=== PATIENT | female | born 1950 | race Caucasian/White ===

== ENCOUNTER 2018-06-12 09:03 | Outpatient (CLI) | payer BC ==
--- NOTE | 2018-06-12 09:30 | RAD ---
CHEST TWO VIEWS: History: Dyspnea. Comparison: 03-19-17 FINDINGS: There is scarring in the lung apices. No focal airspace consolidation, pneumothorax, or effusion. Mil d S-shaped scoliosis. Right upper quadrant surgical clips. IMPRESSION: No acute intrathoracic abnormality. POS: [facility]
== END 2018-06-12 09:04 | disposition home or self-care (01) ==
LOC: RAD 09:03
PROVIDERS: ATTEND Internal Medicine Critical Care Medicine
DX: R06.00 Dyspnea, unspecified (principal)
CPT/HCPCS: 71046

== ENCOUNTER 2018-08-13 08:21 | Outpatient (CLI) | payer BC ==
--- NOTE | 2018-08-13 10:50 | MRI ---
MRI CERVICAL SPINE WITHOUT CONTRAST: Date: 08/13/18 HISTORY: Cervical spine degeneration. Neck pain with pain radiating down left arm. COMPARISON: none. TECHNIQUE: Cervical spine MRI is performed without intravenous Gadolinium administration. Multisequential, multi planar imaging is performed. FINDINGS: There appears to be Type I Modic change at the C5-C6 disc space. There also appears to be abnormal ed graciela involving the right facet at C6, C7, and the intervening interfacet of joint space which has flui d. Facet arthropathy is suspected. No STIR hyperintensity to suggest vertebral body fractures or liga mentous injury. Visualized brain parenchyma, cervicomedullary junction, cervical cord, and the upper thoracic cord vickers ve a normal size and signal intensity. C2-C3: No significant central canal stenosis. Neural foramina are patent. C3-C4: No significant central canal stenosis. Right neural foramen is patent. Mild left foraminal na rrowing. C4-C5: Central disc osteophyte complex abuts the thecal sac. Ventral CSF signal intensity is maintai gary. No significant central canal stenosis. Neural foramina are patent bilaterally. C5-C6: Broad based disc osteophyte complex. Mild central canal stenosis. Right neural foramen is pat ent. Mild to moderate left foraminal narrowing due to degenerative change of the uncovertebral joint. C6-C7: No significant disc osteophyte complex. No significant central canal stenosis. Neural foramin a are patent. C7-T1: No significant central canal stenosis. Neural foramina are patent. IMPRESSION: Degenerative changes of the cervical spine as detailed above. POS: [facility]
== END 2018-08-13 08:22 | disposition home or self-care (01) ==
LOC: TBSIIMAG 08:21
PROVIDERS: ATTEND Internal Medicine Rheumatology
DX: M47.812 Spondylosis without myelopathy or radiculopathy, cervical region (principal)
CPT/HCPCS: 72141

== ENCOUNTER 2019-01-29 10:01 | Outpatient (CLI) | payer BC ==
--- NOTE | 2019-01-29 11:52 | RAD ---
CERVICAL SPINE 4 VIEWS: INDICATION: Neck pain without history of injury. COMPARISON: Prior MRI cervical spine dated 08/13/2018 and a cervical spine radiograph dated 06/24/2018. FINDINGS: There is very subtle anterior translation of C4 and C5 that was seen with flexion on the prior examin ation. There is advanced degenerative disk disease at C5-6. There is prominent facet osteoarthrosis at C4-5 and C5-6. There is very subtle anterior translation of C6 on C7 which is stable. Anterior translation of C4 on C6 and C6 on C7 is accentuated with flexion and does reduce with extension. Lat eral masses are symmetric. No acute fracture is evident. IMPRESSION: 1. Abnormal translational motion at C4-C5 and C6-7, accentuated with flexion and reduces with extens ion. 2. Moderate spondylosis of the cervical spine appears similar to a comparison dated 2017. POS: [facility]
== END 2019-01-29 10:02 | disposition home or self-care (01) ==
LOC: TBSIIMAG 10:01
PROVIDERS: ATTEND Surgery
DX: M47.22 Other spondylosis with radiculopathy, cervical region (principal)
CPT/HCPCS: 72050

== ENCOUNTER 2019-03-31 10:44 | Outpatient (CLI) | payer BC ==
[2019-03-31 11:50] LABS: Hemoglobin 11.9 g/dL (12.0-16.0); Mean Corpuscular HGB CONC 32.6 g/dL (32.0-36.0); Mean Corpuscular Hemoglobin 31.1 pg (27.0-31.0); Mean Corpuscular Volume 95.5 fL (78.0-98.0); Mean Platelet Volume 7.2 fL (7.4-10.4); Platelet Count 260 thou/uL (130-400); RBC Distribution Width 11.8 % (11.5-14.5); Red Blood Cell (RBC) Count 3.82 mill/uL (4.20-5.40); White Blood Cell (WBC) Count 7.8 thou/uL (4.8-10.8)
[2019-03-31 11:59] LABS: INR-International Normal Ratio 0.9; PTT 29.7 SEC (22.9-36.1); Prothrombin Time 12.5 SEC (12.0-14.7)
[2019-03-31 12:25] LABS: Anion Gap 15 mmol/L (10-20); BUN (Urea Nitrogen) 17 mg/dL (9.8-20.1); Calc. Creatinine Clearance 0 mL/min (70-130); Calcium 10.1 mg/dL (7.8-10.44); Carbon Dioxide 27 mmol/L (23-31); Chloride 101 mmol/L (98-107); Estimated GFR-MDRD 62; Glucose 99 mg/dL (80-115); Potassium 4.5 mmol/L (3.5-5.1); Sodium 138 mmol/L (136-145)
== END 2019-03-31 10:45 | disposition home or self-care (01) ==
LOC: LABBT 10:44
PROVIDERS: ATTEND Surgery
DX: Z01.818 Encounter for other preprocedural examination (principal); M48.02 Spinal stenosis, cervical region; M54.12 Radiculopathy, cervical region
CPT/HCPCS: 80048; 85027; 85610; 85730; 93005; 93010

== ENCOUNTER 2019-04-03 06:06 | Day surgery (SDC) | payer BC ==
[2019-03-31 10:56] VITALS: BMI 23.5
[2019-04-03] MEDS ORDERED: Thrombin 5000 UNITS/5 ML VIAL ONE (06:38)
[2019-04-03] MEDS ORDERED: Sodium Chloride 0.9% 10 ML ONE ×2 (06:38→22:34)
[2019-04-03] MEDS ORDERED: ceFAZolin Sodium (SDC) 2 GM/100 ML BAG ONE (06:52)
[2019-04-03] MEDS ORDERED: Fentanyl 250 MCG/5 ML VIAL ONE (07:12)
[2019-04-03] MEDS ORDERED: Ketamine 50 MG/ML (10ML VIAL) ONE (07:31)
[2019-04-03] MEDS ORDERED: HYDROmorphone 2 MG/ML VIAL SLOW IVP PRN (09:09)
[2019-04-03] MEDS ORDERED: Promethazine HCl 25 MG/ML VIAL SLOW IVP PRN (09:09)
[2019-04-03] MEDS ORDERED: Morphine Sulfate 2 MG/ML SYRINGE SLOW IVP PRN (09:09)
[2019-04-03] MEDS ORDERED: Ondansetron HCl/PF 4 MG/2 ML Vial IVP PRN (09:09)
[2019-04-03] MEDS ORDERED: PACU-Morphine 4MG/ML VIAL SLOW IVP PRN (09:09)
[2019-04-03] MEDS ORDERED: Promethazine HCl 25 MG/ML VIAL IM PRN (09:09)
[2019-04-03] MEDS ORDERED: Bisacodyl 10 MG SUPP PR PRN (10:00)
[2019-04-03] MEDS ORDERED: Fleet Enema 133 ML BOT PR PRN (10:00)
[2019-04-03] MEDS ORDERED: Ondansetron PF 4 MG/2 ML Vial IVP PRN (10:00)
[2019-04-03] MEDS ORDERED: Mag-Al 1200 mg/1200 mg/30 ML UDCUP PO PRN (10:00)
[2019-04-03] MEDS ORDERED: traMADol HCl 50 MG TAB PO PRN ×2 (10:00)
[2019-04-03] MEDS ORDERED: Milk Of Magnesia 30 ML UDCUP PO PRN (10:00)
[2019-04-03] MEDS ORDERED: Acetaminophen 325 MG TAB PO PRN (10:00)
[2019-04-03] MEDS ORDERED: Promethazine HCl 25 MG/ML VIAL ONE (10:15)
[2019-04-03] MEDS ORDERED: HYDROmorphone 2 MG/ML VIAL ONE (10:49)
[2019-04-03] MEDS ORDERED: Fentanyl 100 MCG/2 ML VIAL ONE (11:01)
[2019-04-03] MEDS ORDERED: PHENYLEPHRINE-NS 100 MCG/ML 10 ML SYRINGE ONE (11:49)
[2019-04-03] MEDS ORDERED: Rocuronium Bromide 10 MG/ML (10ML VIAL) ONE (11:49)
[2019-04-03] MEDS ORDERED: Dexamethasone 20 MG/5 ML VIAL ONE (11:49)
[2019-04-03] MEDS ORDERED: PROPOFOL 200 MG/20 ML VIAL ONE (11:49)
[2019-04-03] MEDS ORDERED: Lidocaine 1% PF 5 ML VIAL ONE (11:49)
[2019-04-03] MEDS ORDERED: Glycopyrrolate 0.2 MG/ML 5 ML SYRINGE ONE (11:49)
[2019-04-03] MEDS ORDERED: Ondansetron PF 4 MG/2 ML Vial ONE (11:49)
--- NOTE | 2019-04-03 11:56 | OP ---
DATE OF PROCEDURE: 04/03/2019 LOCATION: OR 11. WOUND CLASSIFICATION: Type 1 wound. PRODUCTION DESIGNER: eFrn. PREPROCEDURE DIAGNOSES: Cervical stenosis with neck and arm pain. POSTPROCEDURE DIAGNOSES: Cervical stenosis with neck and arm pain. PROCEDURES PERFORMED: 1. Anterior C4-C5, C5-C6 diskectomies for decompression of spinal cord and nerve roots. 2. Placement of interbody spacers packed with graft, C4-C5, C5-C6 for arthrodesis. 3. Anterior cervical plate and screw fixation, C4, C5, C6. 4. Use of operative microscope for microdissection. DESCRIPTION OF PROCEDURE: After informed consent was obtained from the patient, the patient was brought to the OR. Proper patient, pause, and identification were carried out. She was placed supine with the head kept in neutral position. A right transverse david was made and this was sterilely cleansed, prepared, and draped. Proper patient, pause, and identification were carried out. The wound was then opened with combination of sharp, monopolar, and blunt dissection, and we proceeded lateral to the laryngopharyngeal bundle and medial to the right carotid sheath, we identified the prevertebral layer of deep cervical fascia, longus colli muscles, they were swept laterally. Distraction occurred. We then performed a diskectomy at C4-C5 with use of operative microscope for microdissection, with excellent decompression of common dural tube and nerve roots. We then turned our attention to C5-C6 segment for placement of interbody spacer and diskectomy at C5-C6 was performed as well. Interbody spacer was placed at both segments for arthrodesis packed with graft. Copious irrigation, maximized hemostasis occurred. The microscope was removed. The anterior cervical plate and screw fixation occurred at C4, C5, C6, with final tightening. Again, the wound was then closed in anatomic layers following the placement of a drain. Job ID: [id number]
[2019-04-03] MEDS: Sodium Chloride 0.9% 1,000 ML IV SCH (12:57)
[2019-04-03] MEDS: Morphine 2 MG/ML SYRINGE SLOW IVP PRN ×3 (14:56→22:12)
[2019-04-03] MEDS: CEFAZOLIN 2 GM, IV Admixture Fee-Chemo 1 UNITS in Sodium Chloride 0.9% 100 ML IVPB SCH ×2 (15:04→22:08)
[2019-04-03] MEDS ORDERED: Scopolamine 1.5 mg/72 hour Patch TOP SCH (16:15)
[2019-04-03] MEDS: tiZANidine HCl 4 MG TAB PO PRN (17:21)
[2019-04-03] MEDS ORDERED: Zolpidem Tartrate 5 MG TAB PO SCH (21:00)
[2019-04-03] MEDS ORDERED: ZAFIRLUKAST PO SCH (21:00)
[2019-04-03] MEDS ORDERED: Zonisamide 100 MG CAP PO SCH (21:00)
[2019-04-03] MEDS ORDERED: Amitriptyline HCl 25 MG TAB PO SCH (21:00)
[2019-04-03] MEDS: levETIRAcetam 500 MG TAB PO SCH (22:07)
[2019-04-04] MEDS: Morphine 2 MG/ML SYRINGE SLOW IVP PRN (04:13)
[2019-04-04] MEDS ORDERED: Levothyroxine Sodium 50 MCG TAB PO SCH (06:00)
[2019-04-04] MEDS: CEFAZOLIN 2 GM, IV Admixture Fee-Chemo 1 UNITS in Sodium Chloride 0.9% 100 ML IVPB SCH (06:08)
[2019-04-04] MEDS: Sodium Chloride 0.9% 1,000 ML IV SCH (06:17)
[2019-04-04] MEDS ORDERED: Fluticasone Propionate Nasal Spray 16 gm Bottle NASAL SCH (09:00)
[2019-04-04] MEDS ORDERED: Nebivolol HCl 2.5 MG TAB PO SCH (09:00)
[2019-04-04] MEDS ORDERED: Montelukast Sodium 10 mg Tablet PO SCH (09:00)
[2019-04-04] MEDS ORDERED: Triamterene/Hydrochlorothiazide 37.5 mg/25 mg Tablet PO SCH (09:00)
[2019-04-04] MEDS ORDERED: Atorvastatin Calcium 20 MG TAB PO SCH (09:00)
[2019-04-04] MEDS ORDERED: valACYclovir 500 MG TAB PO SCH (09:00)
[2019-04-04] MEDS ORDERED: OSPEMIFENE 60 MG PO SCH (09:00)
--- NOTE | 2019-04-04 10:41 | PRG ---
DATE OF SERVICE: 04/04/2019 Ms. Godoy is postoperative day 1 from C4 through C6 ACDF. Her drain output has been 25 mL. She has no arm pain. She moves all extremities to command. She has as expected shoulder and interscapular pain with no evidence of dysphonia or dysphagia this morning. We will plan for dismissal. Job ID: [id number]
[2019-04-04] MEDS ORDERED: Tamsulosin HCl 0.4 MG CAP PO SCH (11:15)
[2019-04-04 11:38] VITALS: BP 116/55; TEMP 98.7
[2019-04-04] MEDS: levETIRAcetam 500 MG TAB PO SCH (12:00)
[2019-04-04] MEDS: tiZANidine HCl 4 MG TAB PO PRN (12:08)
== END 2019-04-04 12:17 | disposition home or self-care (01) ==
LOC: SDC 06:06 → 3SE 11:37 → SDC 04-04 12:17
PROVIDERS: ATTEND Surgery
PROC: 0RG20A0 Fusion of 2 or more Cervical Vertebral Joints with Interbody Fusion Device, Anterior Approach, Anterior Column, Open Approach (ICD-10-PCS; principal; 2019-04-04)
PROC: 0RT30ZZ Resection of Cervical Vertebral Disc, Open Approach (ICD-10-PCS; principal; 2019-04-04)
DX: M48.02 Spinal stenosis, cervical region (principal); Z88.5 Allergy status to narcotic agent; Z88.8 Allergy status to other drugs, medicaments and biological substances
CPT/HCPCS: 76000; C1713; C1776; J0131; J0690; J1170; J2270; J2405; J2550; J3010; J3490

== ENCOUNTER 2019-05-14 08:28 | Outpatient (CLI) | payer MEDICARE ==
--- NOTE | 2019-05-14 09:57 | RAD ---
CERVICAL SPINE FOUR VIEW SERIES: INDICATIONS: Cervical stenosis. COMPARISON: Reference made to 05/19/2016. FINDINGS: Multilevel ACDF spans C4 through C6 with anterior plate, vertebral body screws, and intervening disk space prostheses. There is no obvious acute hardware complication. Spine alignment is relatively we ll preserved. The lateral masses of C1 maintain alignment. IMPRESSION: Postoperative cervical spine without acute hardware complication. POS: [facility]
== END 2019-05-14 08:29 | disposition home or self-care (01) ==
LOC: TBSIIMAG 08:28
PROVIDERS: ATTEND Surgery
DX: M48.02 Spinal stenosis, cervical region (principal); Z98.890 Other specified postprocedural states
CPT/HCPCS: 72040

== ENCOUNTER 2020-08-20 12:58 | Outpatient (CLI) | payer MEDICARE ==
--- NOTE | 2020-08-20 14:07 | RAD ---
TWO VIEWS OF THE LUMBOSACRAL SPINE: 08/20/20 HISTORY: L2 compression fracture. FINDINGS: Two views of the lumbosacral spine shows compression deformity of the L2 vertebral body involving the superior end plate with approximately 10-25% height loss. This may extend to the posterior aspect of the vertebral body but there is no retropulsion of the posterior aspect of the vertebral body into t he central canal. There is grade I anterolisthesis of L3 on L4. The other vertebral bodies demonstrat e normal alignment. No other fractures are seen. Posterior facet arthrosis is seen in the lower lumbo sacral spine. Cholecystectomy clips are seen. IMPRESSION: 1. L2 compression fracture/burst fracture as above. 2. Degenerative changes of the lumbar spine. POS: [facility]
== END 2020-08-20 12:59 | disposition home or self-care (01) ==
LOC: TBSIIMAG 12:58
PROVIDERS: ATTEND Surgery
DX: M48.56XA Collapsed vertebra, not elsewhere classified, lumbar region, initial encounter for fracture (principal); M47.816 Spondylosis without myelopathy or radiculopathy, lumbar region
CPT/HCPCS: 72100

== ENCOUNTER 2020-09-17 11:16 | Outpatient (CLI) | payer MEDICARE ==
--- NOTE | 2020-09-17 11:51 | RAD ---
Exam: 2 views lumbar spine COMPARISON: 08/20/2020 HISTORY: Follow-up L2 vertebral body fracture. FINDINGS: 5 lumbar type vertebra. Stable mild compression fracture along the superior endplate of L2 without significant change in loss of vertebral body height or loosening. Grade 1 anterolisthesis of L3 upon L4, unchanged. No acute fractures of the lumbar spine IMPRESSION: Stable mild compression fracture at L2.
== END 2020-09-17 11:17 | disposition home or self-care (01) ==
LOC: TBSIIMAG 11:16
PROVIDERS: ATTEND Surgery
DX: M48.56XD Collapsed vertebra, not elsewhere classified, lumbar region, subsequent encounter for fracture with routine healing (principal)
CPT/HCPCS: 72100

== ENCOUNTER 2020-11-01 14:06 | Outpatient (CLI) | payer MEDICARE ==
--- NOTE | 2020-11-01 14:28 | RAD ---
EXAM: XR Lumbar Spine 2 Or 3 View PROVIDED CLINICAL HISTORY: Lumbar spine compression fracture COMPARISON: 09/17/2020 FINDINGS: Again noted is the compression fracture involving superior endplate of the L2 vertebral body. Degree of height loss is unchanged. Remaining vertebral body heights are within normal limits. No additional fracture is seen. Slight grade 1 anterolisthesis of L3 on L4 is again present. Facet degen erative changes are seen at multiple levels. Surgical clips overlie the right upper quadrant. IMPRESSION: 1. Stable degree of height loss involving L2 vertebral body compression fracture. 2. Stable grade 1 anterolisthesis of L3 on L4.
== END 2020-11-01 14:07 | disposition home or self-care (01) ==
LOC: TBSIIMAG 14:06
PROVIDERS: ATTEND Surgery
DX: S32.029D Unspecified fracture of second lumbar vertebra, subsequent encounter for fracture with routine healing (principal)
CPT/HCPCS: 72100

== ENCOUNTER 2022-09-22 11:52 | Outpatient (CLI) | payer MEDICARE | END 2022-09-22 11:53 | disposition home or self-care (01) | LOC: SCSCT 11:52 | PROVIDERS: ATTEND Surgery | DX: M50.11 Cervical disc disorder with radiculopathy, high cervical region (principal); M48.061 Spinal stenosis, lumbar region without neurogenic claudication; M47.26 Other spondylosis with radiculopathy, lumbar region; Z98.1 Arthrodesis status | CPT/HCPCS: 72050; 72125; 72141 ==

== ENCOUNTER 2023-01-12 12:35 | Outpatient (CLI) | payer MEDICARE ==
[2023-01-12 13:49] LABS: Hemoglobin 10.5 g/dL (12.0-15.5); Mean Corpuscular HGB CONC 31.8 g/dL (32.0-36.0); Mean Corpuscular Hemoglobin 30.4 pg (27.0-33.0); Mean Corpuscular Volume 95.7 fl (81.6-98.3); Mean Platelet Volume 9.5 fl (7.4-10.4); Platelet Count 298 10x3/uL (150-450); RBC Distribution Width 14.6 % (11.5-14.5); Red Blood Cell (RBC) Count 3.45 10x6/uL (3.90-5.03); White Blood Cell (WBC) Count 8.1 10x3/uL (3.5-10.5)
[2023-01-12 14:39] LABS: Anion Gap 13 mmol/L (10-20); BUN (Urea Nitrogen) 19 mg/dL (9.8-20.1); Calc. Creatinine Clearance 0 mL/min (70-130); Calcium 8.6 mg/dL (7.8-10.44); Carbon Dioxide 21 mmol/L (23-31); Chloride 110 mmol/L (98-107); Estimated GFR 71; Glucose 107 mg/dL (83-110); Sodium 140 mmol/L (136-145)
== END 2023-01-12 12:36 | disposition home or self-care (01) ==
LOC: LABBT 12:35
PROVIDERS: ATTEND Orthopaedic Surgery
DX: Z01.818 Encounter for other preprocedural examination (principal); S82.001A Unspecified fracture of right patella, initial encounter for closed fracture
CPT/HCPCS: 80048; 85027; 93005; 93010

== ENCOUNTER 2023-01-15 10:19 | Day surgery (SDC) | payer OTHER, MEDICARE ==
[2023-01-12 13:12] VITALS: BMI 23.5
[2023-01-15] MEDS ORDERED: Bupivacaine PF 0.5% 30 ML VIAL ONE ×2 (11:20→12:07)
[2023-01-15] MEDS ORDERED: fentaNYL PF 100 MCG/2 ML SYRINGE ONE (11:48)
[2023-01-15] MEDS ORDERED: Acetaminophen 500 MG TAB ONE (12:00)
[2023-01-15] MEDS ORDERED: Dexamethasone 20 MG/5 ML VIAL ONE (12:05)
[2023-01-15] MEDS ORDERED: Ondansetron PF 4 MG/2 ML Vial ONE (12:05)
[2023-01-15] MEDS ORDERED: Midazolam HCl 2 mg/2 ml Vial ONE (12:07)
[2023-01-15] MEDS ORDERED: fentaNYL 50 mcg/mL 1 mL Vial ONE ×2 (12:07→14:11)
[2023-01-15] MEDS ORDERED: Ropivacaine 0.5% HCl/PF (150 MG/30 ML VIAL) ONE (12:08)
[2023-01-15] MEDS ORDERED: CEFAZOLIN 2 GM VIAL ONE (12:15)
[2023-01-15] MEDS ORDERED: Sodium Chloride 0.9% 100 ML ONE (12:15)
[2023-01-15] MEDS ORDERED: Dexmedetomidine 200 MCG/2 ML VIAL ONE ×2 (12:19→12:26)
[2023-01-15] MEDS ORDERED: Magnesium 5 GM/10 ML VIAL ONE (12:26)
[2023-01-15] MEDS ORDERED: oxyCODONE 5 MG TAB ONE (14:20)
== END 2023-01-15 15:40 | disposition home or self-care (01) ==
LOC: SDC 10:19
PROVIDERS: ATTEND Orthopaedic Surgery
PROC: 0QSD04Z Reposition Right Patella with Internal Fixation Device, Open Approach (ICD-10-PCS; principal; 2023-01-15)
DX: S82.031A Displaced transverse fracture of right patella, initial encounter for closed fracture (principal); G43.909 Migraine, unspecified, not intractable, without status migrainosus; M79.7 Fibromyalgia; K58.0 Irritable bowel syndrome with diarrhea; G47.00 Insomnia, unspecified; Z79.1 Long term (current) use of non-steroidal anti-inflammatories (NSAID); Z79.620 Long term (current) use of immunosuppressive biologic; Z79.82 Long term (current) use of aspirin; Z79.890 Hormone replacement therapy; Z79.899 Other long term (current) drug therapy; Z88.5 Allergy status to narcotic agent; Z88.8 Allergy status to other drugs, medicaments and biological substances; W01.0XXA Fall on same level from slipping, tripping and stumbling without subsequent striking against object, initial encounter; Y92.481 Parking lot as the place of occurrence of the external cause
CPT/HCPCS: 27524; 73560; J3010; C1713; C1769; C1776; J1100; J2250; J2405; J2795; J3475; J3490; S0020